=== PATIENT | male | born 1990 | race Caucasian/White ===

== ENCOUNTER → 2017-08-01 | Outpatient (CLI) | payer OTHER ==
[~2017-08-01] MED LIST: CYCL-332 PO; HYDR-3503 PO; IBUP-56 PO; NAPR500T75 PO
--- NOTE | 2017-08-01 16:33 | RADIOLOGY IMAGING REPORT ---
FACILITY: [facility] PATIENT NAME: Dimas Cagle : 1990 MR: [id number] V: [id number] EXAM DATE: ORDERING PHYSICIAN: JAMMIE MCKENZIE TECHNOLOGIST: Location: [facility] [place] Patient: Dimas Cagle : 1990 Visit/Account:[id number] Date of Sevice: 08/01/2017 CHEST PA AND LAT HISTORY: Bronchitis. Cough. COMPARISON: None FINDINGS: Cardiomediastinal contours: Normal Lungs and pleura: There is no finding of an infiltrate, lymphadenopathy or pleural effusion. Bones/soft tissues: There are no findings of a fracture. IMPRESSION: Normal chest x-ray without findings of acute disease. Report Dictated By: Zain Argueta MD at 08/01/2017 4:30 PM Report E-Signed By: Zain Argueta MD at 08/01/2017 4:30 PM [id number]
== END ==
LOC: RAD 15:55
PROVIDERS: ATTEND Family Medicine
DX: J02.9 Acute pharyngitis, unspecified (principal)
CPT/HCPCS: 71046